=== PATIENT | female | born 1990 | race American Indian/Alaskan Native ===

== ENCOUNTER 2016-09-07 04:44 | Inpatient (IN) | payer MEDICAID ==
--- NOTE | 2016-09-07 06:20 | History and Physical Report ---
History of Present Illness Date of examination: 09/07/16 Chief complaint: Painful contractions History of present illness: 25-year-old 002 at 38+6 weeks presents in active labor, she has had no care this . Patient however did drop into [facility] where she had an ultrasound earlier in this . She was then informed her due date was 09/15/2015. 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 denies: smoking, alcohol abuse, prescription drug abuse, IV drug use - Obstetrical History Expected Date of Delivery: 09/15/16 Actual Gestation: 38 Week(s) 6 Day(s) : 3 Para: 2 Medications and Allergies Allergies Allergy/AdvReac Type Severity Reaction Status Date / Time No Known Allergies Allergy Verified 09/07/16 05:43 Review of Systems Constitutional: no fever, no chills, no sweats Cardiovascular: no chest pain, no edema, no syncope, no lightheadedness, no shortness of breath, no dyspnea on exertion Gastrointestinal: abdominal pain (Painful contractions), no nausea, no vomiting Genitourinary: no vaginal bleeding, no vaginal discharge, no leakage of fluid, no pelvic pain - Vital Signs Vital signs: Vital Signs Pulse Pulse Ox 88 97 09/07/16 05:31 09/07/16 05:31 Temp Pulse Resp BP Pulse Ox 136 H 105/72 82 L 09/07/16 06:13 09/07/16 05:33 09/07/16 06:13 - Physical Exam Cardiovascular: Regular rate, Normal S1, Normal S2 Lungs: Positive: Clear to auscultation Abdomen: Positive: normal appearance, soft. Negative: distention, tenderness, guarding, rigidity Genitourinary (Female): Positive: normal external genitalia Vulva: both: normal Uterus: Positive: enlarged (EFW ~ 3600) Adnexa: both: normal Extremities: Positive: normal - Obstetrical FHR: category 1 Cervical Dilatation: 5.5 Cervical Effacement Percentage: 90 station: -2 Results All other labs normal. Assessment and Plan A: 25 y/o at 38+6 wks in active labour -No PNC P: -Admit -Routine labs - labs -UDS -Epidural prn -Anticipate - Patient Problems (1) 38 to 41 weeks gestation of Current Visit: Yes Status: Acute (2) No care in current Current Visit: Yes Status: Acute (3) Active labor at term Current Visit: Yes Status: Acute
[2016-09-07] MEDS ORDERED: ZOFRAN IV PRN ×2 (06:24→09:12)
[2016-09-07] MEDS ORDERED: ePHEDrine SULFATE IV PRN (06:24)
[2016-09-07] MEDS ORDERED: SUBLIMAZE IV PRN (06:24)
[2016-09-07] MEDS ORDERED: BRETHINE IVP PRN (06:24)
[2016-09-07] MEDS ORDERED: POLYCILLIN/NS 2 GM/100 ML 100 ML IV ONE (06:24)
[2016-09-07] MEDS ORDERED: BRETHINE SUB-Q PRN (06:24)
[2016-09-07] MEDS ORDERED: MINERAL OIL PO PRN (06:24)
[2016-09-07] MEDS ORDERED: PITOCin/NS 30 UNIT/500ML 500 ML IV SCH ×2 (07:00)
[2016-09-07] MEDS ORDERED: PITOCin/NS 20 UNIT/1000ML DRIP 1,000 ML IV SCH ×2 (07:00→10:00)
[2016-09-07] MEDS ORDERED: LACTATED RINGERS 1,000 ML IV SCH (07:00)
[2016-09-07 07:23] LABS: Hematocrit 32.7 % (30.3-42.9); Mean Corpuscular HGB Conc 31 % (30-34); Mean Corpuscular Volume 73 fl (79-97); Platelet Count 306 K/mm3 (140-440); Red Blood Count 4.48 M/mm3 (3.65-5.03); Red Cell Distribution Width 17.9 % (13.2-15.2); White Blood Count 10.4 K/mm3 (4.5-11.0)
[2016-09-07 07:25] LABS: Mean Corpuscular Hemoglobin 22 pg (28-32)
--- NOTE | 2016-09-07 08:07 | Progress Note ---
Assessment and Plan A: 25 y/o at 38+6 wks in active labour -No PNC P: -Continue present care -Anticipate normal vaginal delivery - Patient Problems (1) 38 to 41 weeks gestation of Current Visit: Yes Status: Acute (2) No care in current Current Visit: Yes Status: Acute (3) Active labor at term Current Visit: Yes Status: Acute Subjective - Subjective Date of service: 09/07/16 Interval history: Patient seen and exam, unable to reach cervical os due to patient discomfort. Significant amount of stool palpated in rectal vault. Bedside scan confirms cephalic presentation Patient reports: new complaints, movement normal, contractions, no loss of fluid, no vaginal bleeding Objective - Vital Signs Vital Signs: Vital Signs - 12hr 09/07/16 09/07/16 09/07/16 05:31 05:32 05:33 Pulse Rate 88 80 82 Blood Pressure 105/72 O2 Sat by Pulse 97 93 98 Oximetry 09/07/16 09/07/16 09/07/16 05:38 05:43 05:46 Pulse Rate 81 84 94 H Blood Pressure O2 Sat by Pulse 96 96 96 Oximetry 09/07/16 09/07/16 09/07/16 05:54 05:55 05:56 Pulse Rate 88 227 H 68 Blood Pressure O2 Sat by Pulse 82 L 45 L 82 L Oximetry 09/07/16 09/07/16 09/07/16 05:57 06:00 06:02 Pulse Rate 150 H 86 90 Blood Pressure O2 Sat by Pulse 82 L 93 93 Oximetry 09/07/16 09/07/16 09/07/16 06:03 06:04 06:06 Pulse Rate 108 H 98 H 76 Blood Pressure O2 Sat by Pulse 91 87 98 Oximetry 09/07/16 09/07/16 09/07/16 06:07 06:08 06:10 Pulse Rate 90 78 81 Blood Pressure O2 Sat by Pulse 98 99 91 Oximetry 09/07/16 09/07/16 09/07/16 06:11 06:12 06:13 Pulse Rate 72 182 H 136 H Blood Pressure O2 Sat by Pulse 82 L 82 L 82 L Oximetry 09/07/16 09/07/16 09/07/16 06:23 06:24 06:25 Pulse Rate 75 125 H 64 Blood Pressure O2 Sat by Pulse 82 L 87 82 L Oximetry 09/07/16 09/07/16 09/07/16 06:26 06:28 06:32 Pulse Rate 125 H 469 H 97 H Blood Pressure O2 Sat by Pulse 82 L 82 L 82 L Oximetry 09/07/16 09/07/16 09/07/16 06:33 06:34 06:37 Pulse Rate 82 75 82 Blood Pressure O2 Sat by Pulse 98 93 97 Oximetry 09/07/16 09/07/16 09/07/16 06:38 07:22 07:46 Pulse Rate 89 70 83 Blood Pressure 117/78 O2 Sat by Pulse 92 98 Oximetry 09/07/16 09/07/16 09/07/16 07:51 07:55 07:56 Pulse Rate 88 93 H 75 Blood Pressure O2 Sat by Pulse 96 94 97 Oximetry - Exam FHR: category 1 - Labs Labs: Abnormal Labs 09/07/16 07:10 Hgb 10.0 L MCV 73 L MCH 22 L RDW 17.9 H Laboratory Results - last 24 hr 09/07/16 09/07/16 09/07/16 07:10 07:10 07:10 WBC 10.4 RBC 4.48 Hgb 10.0 L Hct 32.7 MCV 73 L MCH 22 L MCHC 31 RDW 17.9 H Plt Count 306 Hep Bs Antigen Hepatitis C Antibody Non-reactive Blood Type O POSITIVE 09/07/16 07:10 WBC RBC Hgb Hct MCV MCH MCHC RDW Plt Count Hep Bs Antigen Non-reactive Hepatitis C Antibody Blood Type
--- NOTE | 2016-09-07 09:11 | Procedure Note ---
OB Delivery Note - Delivery Date of Delivery: 09/07/16 Surgeon: AURORA HUTCHISON Estimated blood loss: 100cc - Vaginal Delivery presentation: vertex Delivery position: OA Intrapartum events: no care, precipitous labor- <3hr Delivery induction: none Delivery monitor: external FHT, external uterine Route of delivery: Delivery placenta: spontaneous Delivery cord: 3 umbilical vessels Delivery laceration: 1st degree Anesthesia: none - A at 1 minute: 9 at 5 minutes: 9 Gender: Female (Delivery @ 09:01, weight is 5#15 or 2659)
[2016-09-07] MEDS ORDERED: PHENERGAN PR PRN (09:12)
[2016-09-07] MEDS ORDERED: TUCKS PAD TP PRN (09:12)
[2016-09-07] MEDS ORDERED: BENADRYL PO PRN (09:12)
[2016-09-07] MEDS ORDERED: DULCOLAX PR PRN (09:12)
[2016-09-07] MEDS ORDERED: ANUCORT-HC PR PRN (09:12)
[2016-09-07] MEDS ORDERED: TYLENOL PO PRN (09:12)
[2016-09-07] MEDS ORDERED: MILK OF MAGNESIA PO PRN (09:12)
[2016-09-07] MEDS ORDERED: LANSINOH TP PRN (09:12)
[2016-09-07] MEDS ORDERED: DERMOPLAST TP PRN (09:12)
[2016-09-07] MEDS ORDERED: PHENERGAN PO PRN (09:12)
[2016-09-07 09:52] LABS: HIV-1 Antigen p24 Non React (Non React); HIVR-1/2 Ab Non React (Non React)
[2016-09-07] MEDS ORDERED: SENOKOT S PO SCH (10:00)
[2016-09-07] MEDS ORDERED: SODIUM CHLORIDE FLUSH SYRINGE 10 ML IV NR (10:00)
[2016-09-07] MEDS ORDERED: PRENATAL VITAMIN PO SCH (10:00)
[2016-09-07] MEDS ORDERED: POLYCILLIN/NS 1 GM/50 ML 50 ML IV SCH (10:00)
[2016-09-07] MEDS ORDERED: PITOCin/NS 20 UNIT/1000ML DRIP IV ONE (10:15)
[2016-09-07] MEDS: MOTRIN PO SCH ×3 (13:15→23:40)
[2016-09-07] MEDS: COLACE PO SCH (23:39)
[2016-09-07] MEDS: FEOSOL PO SCH (23:40)
[2016-09-08 00:15] LABS: Hematocrit 28.4 % (30.3-42.9); Hemoglobin 8.9 gm/dl (10.1-14.3)
[2016-09-08] MEDS: NORCO 5/325 PO PRN ×3 (03:33→20:19)
[2016-09-08] MEDS ORDERED: M-M-R II VACCINE SUB-Q ONE (06:00)
[2016-09-08] MEDS: MOTRIN PO SCH ×3 (06:00→23:30)
[2016-09-08] MEDS: FEOSOL PO SCH ×2 (08:24→23:30)
[2016-09-08] MEDS ORDERED: BOOSTRIX IM ONE (09:12)
--- NOTE | 2016-09-08 10:05 | Progress Note ---
Assessment and Plan - Patient Problems (1) (normal spontaneous vaginal delivery) Diagnosis Date: 09/08/16 Current Visit: Yes Status: Resolved Plan to address problem: A: S/P - PPD #1 Doing well Asymptomatic anemia - stable P: May go home tomorrow Subjective - Subjective Date of service: 09/08/16 Principal diagnosis: s/p - PPD #1 Interval history: Pt is feeling well without complaints. Bleeding improved. Patient reports: appetite normal, voiding normally, pain well controlled, flatus , ambulating normally : doing well, nursing well, bottle feeding Objective - Vital Signs Latest vital signs: Vital Signs Temp Pulse Pulse Resp BP BP Pulse Ox 09/08/16 04:35 97.4 F L 60 16 113/72 09/08/16 00:25 98.4 F 69 20 106/67 09/07/16 20:06 98.4 F 68 20 107/63 09/07/16 16:00 98.2 F 76 18 121/68 09/07/16 11:20 98.3 F 70 18 119/64 09/07/16 10:44 75 99 09/07/16 10:41 67 114/74 09/07/16 10:39 71 98 09/07/16 10:34 68 99 09/07/16 10:33 97.7 F 18 09/07/16 10:29 71 99 09/07/16 10:26 70 111/75 09/07/16 10:24 71 99 09/07/16 10:19 76 99 09/07/16 10:14 78 99 09/07/16 10:11 71 115/66 09/07/16 10:09 72 100 09/07/16 10:04 85 100 Intake and Output 09/07/16 09/08/16 09/08/16 22:59 06:59 14:59 Intake Total 480 120 Output Total 200 Balance 280 120 Intake: Oral 480 120 Output: Urine 200 Void 200 Other: Total, Intake Amount 480 120 Total, Output Amount 200 # Voids Void 1 1 # Bowel Movements 0 - Exam Breasts: Present: deferred Cardiovascular: Present: Regular rate Lungs: Present: Clear to auscultation Abdomen: Present: normal appearance, soft Uterus: Present: normal, firm, fundal height below umbilicus Extremities: Present: normal - Labs Labs: Abnormal lab results 09/07/16 Range/Units 23:50 Hgb 8.9 L (10.1-14.3) gm/dl Hct 28.4 L (30.3-42.9) % Laboratory Tests 09/07/16 09/07/16 09/07/16 07:10 07:10 07:10 WBC 10.4 RBC 4.48 Hgb 10.0 L Hct 32.7 MCV 73 L MCH 22 L MCHC 31 RDW 17.9 H Plt Count 306 RPR Hep Bs Antigen Hepatitis C Antibody Non-reactive HIV 1&2 Antibody Rapid HIV P24 Antigen Rubella IgG Antibody Immune Blood Type O POSITIVE Antibody Screen Negative 09/07/16 09/07/16 09/07/16 07:10 07:10 07:10 WBC RBC Hgb Hct MCV MCH MCHC RDW Plt Count RPR Nonreactive Hep Bs Antigen Non-reactive Hepatitis C Antibody HIV 1&2 Antibody Rapid Non react HIV P24 Antigen Non react Rubella IgG Antibody Blood Type Antibody Screen 09/07/16 23:50 WBC RBC Hgb 8.9 L Hct 28.4 L MCV MCH MCHC RDW Plt Count RPR Hep Bs Antigen Hepatitis C Antibody HIV 1&2 Antibody Rapid HIV P24 Antigen Rubella IgG Antibody Blood Type Antibody Screen
--- NOTE | 2016-09-08 10:09 | Discharge Summary ---
Providers - Providers Date of Admission: 09/07/16 04:46 Date of discharge: 09/09/16 Attending physician: ALAF VERA MD Primary care physician: ALFA VERA MD Hospitalization Reason for admission: active labor, IUP at term Delivery: Episiotomy: none Laceration: 1st degree Other procedures: none complications: none Discharge diagnosis: IUP at term delivered [place] baby: female Hospital course: Unremarkable. Condition at discharge: Good Disposition: DISCHARGED TO HOME OR SELFCARE - Discharge Diagnoses (1) (normal spontaneous vaginal delivery) Status: Resolved Plan - Discharge Medications Prescriptions: Ferrous Sulfate [Feosol 325 MG tab] 325 mg PO BID #60 tablet Ibuprofen [Motrin 600 MG tab] 600 mg PO Q6H #30 tablet Vit-Fe Fumar-FA [ Vitamin] 1 each PO QDAY #30 tablet - Provider Discharge Summary Activity: routine, no sex for 6 weeks, no heavy lifting 4 weeks, no strenuous exercise Diet: routine Instructions: routine Additional instructions: [] Smoking cessation referral if applicable(refer to patient education folder for contact #) [] Refer to [facility]'s [facility] Booklet Call your doctor immediately for: * Fever > 100.5 * Heavy vaginal bleeding ( >1 pad per hour) * Severe persistent headache * Shortness of breath * Reddened, hot, painful area to leg or breast * Drainage or odor from incision. * Keep incision clean and dry at all times and follow doctor's instructions regarding bathing/showering - Follow up plan Follow up: ALFA TALAMANTES MD [Primary Care Provider] - 6 Weeks
[2016-09-08] MEDS: COLACE PO SCH (23:30)
[2016-09-09] MEDS: NORCO 5/325 PO PRN (02:04)
[2016-09-09] MEDS: MOTRIN PO SCH (05:40)
[2016-09-09 13:41] VITALS: BP 116/68
== END 2016-09-09 12:45 | disposition home or self-care (01) | DRG 774 ==
LOC: TRG 04:44 → LD 04:46 → TRG 05:30 → OB 11:49
PROVIDERS: ADMIT Obstetrics & Gynecology; ATTEND Obstetrics & Gynecology
PROC: 10E0XZZ Delivery of Products of Conception, External Approach (ICD-10-PCS; principal; 2016-09-07)
DX: O62.3 Precipitate labor (principal); O99.42 Diseases of the circulatory system complicating childbirth; I51.9 Heart disease, unspecified; O99.02 Anemia complicating childbirth; O70.0 First degree perineal laceration during delivery; Z37.0 Single live birth; Z3A.38 38 weeks gestation of pregnancy; O09.33 Supervision of pregnancy with insufficient antenatal care, third trimester
CPT/HCPCS: 36415; 85014; 85018; 85027; 86592; 86706; 86762; 86803; 86850; 86900; 86901; 87806; 99211; G0463; J0290; J2590; J3010; J7120